=== PATIENT | female | born 1965 | race Caucasian/White ===

== ENCOUNTER 2021-05-28 22:48 | Emergency (ER) | payer SELFPAY ==
[~2021-05-28] VITALS: Ht 180.3 cm; Wt 88.0 kg
[~2021-05-28 22:48] MED LIST: OXYCODONE HCL10 MG PO; VISTARIL25 MG PO; XANAX1 MG PO
--- NOTE | 2021-05-29 19:56 | EKG ---
[facility] [address] [facility] [place] [address] Signed Sinus tachycardia Right atrial enlargement Borderline ECG When compared with ECG of 07-NOV-2016 11:59, Vent. rate has increased BY 66 BPM Confirmed by NICKO STEARNS DO ([id number]) on 05/29/2021 7:56:40 PM Electronically Signed By: NICKO STEARNS DO 05/29/211955 PATIENT NAME: LAURA KHALIL Electrocardiogram DATE OF : 67 PHYSICIAN: NICKO STEARNS DO REPORT #: [id number] REPORT IS CONFIDENTIAL AND NOT TO BE RELEASED WITHOUT AUTHORIZATION
--- NOTE | 2021-05-29 19:57 | EKG ---
[facility] [address] [facility] [place], [place] [address] Signed Sinus tachycardia Right atrial enlargement Borderline ECG When compared with ECG of 28-MAY-2021 23:25, No significant change was found Confirmed by NICKO STEARNS DO ([id number]) on 05/29/2021 7:57:02 PM Electronically Signed By: NICKO STEARNS DO 05/29/211956 PATIENT NAME: LAURA KHALIL Electrocardiogram DATE OF : 67 PHYSICIAN: NICKO STEARNS DO REPORT #: [id number] REPORT IS CONFIDENTIAL AND NOT TO BE RELEASED WITHOUT AUTHORIZATION
== END 2021-05-29 03:52 | disposition short-term general hospital (02) ==
LOC: ED 22:48
DX: A41.9 Sepsis, unspecified organism (principal); R65.20 Severe sepsis without septic shock; R41.82 Altered mental status, unspecified; J18.9 Pneumonia, unspecified organism; R56.9 Unspecified convulsions; M19.90 Unspecified osteoarthritis, unspecified site; Z87.891 Personal history of nicotine dependence; Z88.0 Allergy status to penicillin
CPT/HCPCS: 31500; 36556; 36600; 51702; 70450; 71045; 80053; 81001; 82803; 83605; 83735; 84443; 84703; 85025; 93005; 93010; 94002; 94799; 96368; 99291; G0480; J0290; J0330; J0456; J0696; J1953; J2060; J2704; J3010; J3370; J7030; J7060; U0003